=== PATIENT | female | born 1980 | race Caucasian/White ===

== ENCOUNTER → 2017-10-06 | Outpatient (CLI) | payer OTHER ==
[2015-07-27 12:09] VITALS: BMI 29.4
[~2017-10-06] MED LIST: ADAL20KI2 SQ; ADAL40PE4 SQ; CELE-1 PO; DOCU240C67 PO; ESCI20TA38 PO; ESCI5TAB10 PO; FERR-41 PO; INF100I IV; LEVO750T25 PO; LOR5/325 PO; NORG1TAB82 PO; OMEP-153 PO; OXYC-373 PO; PREN-127 PO; TRA50 PO
[2017-10-06 07:14] LABS: PLATELET COUNT, AUTOMATED 212 K/uL (150-450)
[2017-10-06 08:56] LABS: LDL CHOLESTEROL 70 mg/dl
== END ==
LOC: LAB 06:55
PROVIDERS: ATTEND Emergency Medicine
DX: F41.9 Anxiety disorder, unspecified (principal); R20.8 Other disturbances of skin sensation
CPT/HCPCS: 36415; 82040; 82247; 82306; 82310; 82374; 82435; 82465; 82565; 82607; 82947; 83090; 83718; 83921; 84075; 84132; 84155; 84295; 84443; 84450; 84460; 84478; 84520; 85025

== ENCOUNTER → 2018-05-19 | Outpatient (CLI) | payer OTHER ==
[2015-07-27 12:09] VITALS: BMI 29.4
[~2018-05-19] MED LIST changes: +ALPR-429 PO; +ESCI20TA8 PO; +FLU60SYR36 IM
[2018-05-19 14:02] LABS: PLATELET COUNT, AUTOMATED 269 K/uL (150-450)
== END ==
LOC: LAB 13:40
PROVIDERS: ATTEND Nurse Practitioner Primary Care
DX: R00.2 Palpitations (principal)
CPT/HCPCS: 36415; 82040; 82247; 82310; 82374; 82435; 82565; 82728; 82947; 83540; 83550; 84075; 84132; 84155; 84295; 84443; 84450; 84460; 84520; 85025

== ENCOUNTER → 2018-05-27 | Outpatient (CLI) | payer OTHER ==
[2015-07-27 12:09] VITALS: BMI 29.4
--- NOTE | 2018-05-31 17:02 | RT HOLTER TEST ---
FACILITY: [facility] [place] PATIENT NAME: REAL BOBO : [id number] MR: [id number]: [id number] EXAM DATE: ORDERING PHYSICIAN: JOHNATHAN PEREZ TECHNOLOGIST: Jewel-christal date: 2018-05-27 09:09:00 Duration: 47:59:00 Test Indications: Medications: [id number] QRS complexes 3 Ventricular ectopics which represent <1 % of total QRS comp. 14 Supraventricular ectopics which represent <1 % of total QRS comp. * Paced QRS complexes which represent % of total QRS comp. VENTRICULAR ECTOPY 3 Isolated 0 Bigeminal Cycles 0 Couplets 0 Runs 0 Beats in Runs * Beats LONGEST at * BPM at :: -- * Beats FASTEST at * BPM at :: -- SUPRAVENTRICULAR ECTOPY 9 Isolated 1 Couplets 1 Runs 3 Beats in Runs 3 Beats LONGEST at 86 BPM at 10:36:59 2018-05-27 3 Beats FASTEST at 86 BPM at 10:36:59 2018-05-27 HEART RATES 53 MIN at 23:18:41 2018-05-27 71 AVG 130 MAX at 07:31:21 2018-05-28 LONGEST RR 1.376 secs at 06:00:56 2018-05-29 S-T LEVELS Channel 1 -12.800 mm MIN at 09:09:00 2018-05-27 -12.800 mm MAX at 09:09:00 2018-05-27 Channel 2 -12.800 mm MIN at 09:09:00 2018-05-27 -12.800 mm MAX at 09:09:00 2018-05-27 Channel 3 -12.800 mm MIN at 09:09:00 2018-05-27 -12.800 mm MAX at 09:09:00 2018-05-27 Very rare ventricular ectopy. No couplets, triplets, runs. Very rare supraventricular ectopy with a couplet and one triplet. No other runs were recorded. No pauses were recorded. Confirmed by DIANNE BROWER ([id number]) on 05/31/2018 5:01:49 PM Referred By: Overread By: DIANNE BROWER
== END ==
LOC: US 01:04
PROVIDERS: ATTEND Nurse Practitioner Primary Care
DX: R00.2 Palpitations (principal)
CPT/HCPCS: 93225; 93306

== ENCOUNTER → 2018-10-05 | Outpatient (CLI) | payer OTHER ==
[2015-07-27 12:09] VITALS: BMI 29.4
[2018-10-05 09:32] LABS: PLATELET COUNT, AUTOMATED 216 K/uL (150-450)
== END ==
LOC: LAB 08:38
PROVIDERS: ATTEND Emergency Medicine
DX: Z02.1 Encounter for pre-employment examination (principal); Z01.818 Encounter for other preprocedural examination; K51.90 Ulcerative colitis, unspecified, without complications
CPT/HCPCS: 36415; 82040; 82247; 82310; 82374; 82435; 82565; 82947; 84075; 84132; 84155; 84295; 84450; 84460; 84520; 85025; 85651; 86140; 86480